=== PATIENT | female | born 1970 | race Caucasian/White ===

== ENCOUNTER → 2016-08-07 | Outpatient (CLI) | payer BC | END | disposition home or self-care (01) | LOC: RAD.S 13:06 | DX: N63 Unspecified lump in breast (principal); N64.89 Other specified disorders of breast ==

== ENCOUNTER → 2016-08-20 | Outpatient (CLI) | payer BC | END | disposition home or self-care (01) | LOC: RAD.S 09:23 | PROC: 0HBT3ZX Excision of Right Breast, Percutaneous Approach, Diagnostic (ICD-10-PCS; principal; 2016-08-20) | DX: D24.1 Benign neoplasm of right breast (principal) ==